=== PATIENT | male | born 1990 | race Caucasian/White ===

== ENCOUNTER 2022-04-18 09:00 | Emergency (ER) | payer OTHER ==
[2022-04-18] MEDS ORDERED: NAPROXEN500 MG PO (10:46)
[2022-04-18] MEDS ORDERED: CYCLOBENZAPRINE10 MG PO (10:46)
== END 2022-04-18 11:00 | disposition home or self-care (01) ==
LOC: FER 09:00
DX: S10.93XA Contusion of unspecified part of neck, initial encounter (principal); S20.224A Contusion of middle back wall of thorax, initial encounter; S30.0XXA Contusion of lower back and pelvis, initial encounter; F17.210 Nicotine dependence, cigarettes, uncomplicated; V49.88XA Car occupant (driver) (passenger) injured in other specified transport accidents, initial encounter
CPT/HCPCS: 71046; 72125; 72128; 72131